=== PATIENT | male | born 1950 | race Caucasian/White ===

== ENCOUNTER 2021-11-12 11:46 | Inpatient (IN) | payer MEDICARE, BC ==
[~2021-11-12] VITALS: Ht 170.2 cm; Wt 76.2 kg
--- NOTE | 2021-11-12 11:52 | NUR ---
BIBRA 84 FROM HOME C/O BLOOD IN THE STOOL STARTED 1AM THIS MORNING. PT DENIES NAUSEA. VITALS ARE WITHIN NORMAL LIMTIS. BREATHING IS EVEN AND UNLABORED.
--- NOTE | 2021-11-12 12:13 | NUR ---
PT UNABLE TO PROVIDE URINE AT THIS ANSELMO E
[2021-11-12 12:48] LABS: BASOPHILS # (AUTO) 0.1 K/uL (0.0-0.2); BASOPHILS % (AUTO) 1.3 % (0.0-2.0); EOSINOPHILS % (AUTO) 3.2 % (0.0-6.0); HEMATOCRIT 34 % (39-51); HEMOGLOBIN 11.5 g/dL (13.5-17.5); LYMPHOCYTES # (AUTO) 1.4 K/uL (0.8-4.8); LYMPHOCYTES % (AUTO) 13.1 % (20.0-44.0); MEAN CORPUSCULAR HGB CONC 34 g/dl (31.0-36.0); MEAN CORPUSCULAR VOLUME 92 fL (80-96); NEUTROPHILS # (AUTO) 7.8 K/uL (1.8-8.9); NEUTROPHILS % (AUTO) 73.4 % (43.0-81.0); PLATELET COUNT (AUTO) 416 K/uL (150-450); RED BLOOD CELL COUNT(AUTO) 3.72 MIL/uL (4.5-6.0); WHITE BLOOD COUNT (AUTO) 10.6 K/uL (4.3-11.0)
[2021-11-12 13:00] LABS: CALCIUM, SERUM 9.8 mg/dL (8.5-10.1); CREATININE 1.1 mg/dL (0.6-1.3); POTASSIUM 3.7 mmol/L (3.5-5.1)
[2021-11-12 13:06] LABS: ALBUMIN 3.1 g/dL (3.4-5.0); BILIRUBIN,DIRECT 0.1 mg/dL (0.0-0.2); BILIRUBIN,TOTAL 0.4 mg/dL (0.2-1.0); TOTAL PROTEIN, SERUM 7.1 g/dL (6.4-8.2)
--- NOTE | 2021-11-12 13:51 | NUR ---
SUBMITTED MOVE SHEET AND CALLED FOR BED
--- NOTE | 2021-11-12 13:52 | NUR ---
PAGED EPIC JANITORIAL SUPERVISOR
[2021-11-12] MEDS ORDERED: MAG HYDROX/AL HYDROX/SIMETH 30 ML UDC PO PRN (14:30)
[2021-11-12] MEDS ORDERED: Z GUARD REMEDY 4 OZ OINT TP PRN (14:30)
[2021-11-12] MEDS ORDERED: ACETAMINOPHEN 325 MG TABLET PO PRN (14:30)
[2021-11-12] MEDS ORDERED: MAGNESIUM HYDROXIDE 30 ML UDC PO PRN (14:30)
[2021-11-12] MEDS ORDERED: ONDANSETRON HCL/PF 4 MG/2 ML VIAL IVP PRN (14:30)
[2021-11-12] MEDS ORDERED: DAPA10TA PO (14:37)
[2021-11-12] MEDS ORDERED: METF-440 PO (14:37)
[2021-11-12] MEDS ORDERED: PIOG30TA10 PO (14:37)
[2021-11-12] MEDS ORDERED: TOPI50TA PO (14:37)
[2021-11-12] MEDS ORDERED: ATOR40TA PO (14:37)
[2021-11-12] MEDS ORDERED: FENO160T PO (14:37)
--- NOTE | 2021-11-12 16:27 | NUR ---
covid test collected and sent
--- NOTE | 2021-11-12 16:28 | NUR ---
urine collected and sent
[2021-11-12] MEDS: ZOSYN IVPB 3.375 G in IV D5W 50ml IV SCH (18:29)
[2021-11-12] MEDS: IV NS 0.9% 1,000 ML IV PRN (19:15)
--- NOTE | 2021-11-12 19:54 | NUR ---
ROOM ASSIGNMENT: [id number]
--- NOTE | 2021-11-12 20:22 | NUR ---
GAVE REPORT TO RENETTA MAYER FOR SHRAVAN
[2021-11-12] MEDS: PANTOPRAZOLE 40 MG VIAL IV SCH (21:00)
[2021-11-12 21:30] VITALS: BP 146/89
[2021-11-13] VITALS: BP 136/73
[2021-11-13] MEDS: ZOSYN IVPB 3.375 G in IV D5W 50ml IV SCH ×3 (00:21→12:26)
[2021-11-13] MEDS ORDERED: PIPERACILLIN /TAZOBACTAM 3.375 G VIAL IV ONE (03:20)
[2021-11-13 04:00] VITALS: BP 126/89
--- NOTE | 2021-11-13 06:55 | NUR ---
MS RN CLOSING NOTE PATIENT IS ASLEEP IN BED. A/OX4. NO S/S OF DISTRESS, BREATHING SYMMETRICAL; TOOL COORDINATOR REPORTS SR 101. RFA #20G IV PATENT. SAFETY MEASURES IN PLACE: BED AT LOWEST POSITION, RAILS UP X2, CALL [facility] WITHIN REACH. WILL ENDORSE TO NEXT SHIFT FOR SHRAVAN.
[2021-11-13 07:21] LABS: BASOPHILS # (AUTO) 0.1 K/uL (0.0-0.2); BASOPHILS % (AUTO) 0.9 % (0.0-2.0); EOSINOPHILS % (AUTO) 3.7 % (0.0-6.0); HEMATOCRIT 29 % (39-51); HEMOGLOBIN 9.8 g/dL (13.5-17.5); LYMPHOCYTES # (AUTO) 1.1 K/uL (0.8-4.8); LYMPHOCYTES % (AUTO) 9.7 % (20.0-44.0); MEAN CORPUSCULAR HGB CONC 33 g/dl (31.0-36.0); MEAN CORPUSCULAR VOLUME 92 fL (80-96); MONOCYTES # (AUTO) 1.2 K/uL (0.1-1.30); MONOCYTES % (AUTO) 9.8 % (2.0-12.0); NEUTROPHILS % (AUTO) 75.9 % (43.0-81.0); PLATELET COUNT (AUTO) 459 K/uL (150-450); WHITE BLOOD COUNT (AUTO) 11.8 K/uL (4.3-11.0)
[2021-11-13 07:48] LABS: CALCIUM, SERUM 9.6 mg/dL (8.5-10.1); CREATININE 1.1 mg/dL (0.6-1.3); MAGNESIUM 1.8 mg/dL (1.8-2.4); PHOSPHORUS 2.9 mg/dL (2.5-4.9); POTASSIUM 4.3 mmol/L (3.5-5.1)
[2021-11-13 08:00] VITALS: BP 135/79
--- NOTE | 2021-11-13 09:00 | NUR ---
tele memorial designer: md visit seen and examined by dr. tran at this time and updated plan of care. pt for gi consult. pt aware.
[2021-11-13] MEDS: PANTOPRAZOLE 40 MG VIAL IV SCH (09:24)
--- NOTE | 2021-11-13 11:00 | NUR ---
tele lime kiln operator: notes pt had episode of blood in the stool. dr. tran made aware and says dr. knott (gi) is aware. awaiting for dr. knott to see pt.
[2021-11-13 12:00] VITALS: BP 154/79
[2021-11-13] MEDS: IV NS 0.9% 1,000 ML IV PRN (12:05)
--- NOTE | 2021-11-13 15:10 | NUR ---
tele dietary manager: notes pt tolerated his lunch. no c/o abdominal pain, n/v or blood in the stool. instructed to call for assistance. will continue to monitor.
[2021-11-13 16:00] VITALS: BP 129/77
--- NOTE | 2021-11-13 17:00 | NUR ---
tele horseradish grinder: notes dr. tran on the phone and wants to talk to the pt, call transfer to pt.
--- NOTE | 2021-11-13 17:30 | NUR ---
tele kiss setter hand: notes f/u made to dr. tran and informed md that pt wants to go [facility] and doesn't want to wait for the development technician. cn aware.
--- NOTE | 2021-11-13 17:45 | NUR ---
tele cable lacer: notes pt decided to go against medical advice and will follow up with his primary on monday or monday. dr. tran notified and made aware.
--- NOTE | 2021-11-13 17:55 | NUR ---
tele roll bucker: notes pt is leaving voluntarily leaving the hospital against the advice of dr. tran. pt understands the risks and consequences involving in leaving the hospital at this time, the benefits of continued treatment and hospitalization. pt still insisted going [facility] and signed the the form. h/l and tele removed. at bedside.
--- NOTE | 2021-11-13 18:05 | NUR ---
tele rn perioperative: notes pt left the hospital via private car accompanied by with all valuables.
--- NOTE | 2021-11-15 12:08 | NUR ---
Social Work received consult for DNR/DNI Status. Pt. was departed and SW was unable to see pt.
== END 2021-11-13 18:00 | disposition left against medical advice (07) | DRG 377 ==
LOC: ER 11:51 → MED 20:05 → TELE 21:03
PROVIDERS: ADMIT Internal Medicine; ATTEND Internal Medicine
DX: K92.2 Gastrointestinal hemorrhage, unspecified (principal); N17.0 Acute kidney failure with tubular necrosis; E43 Unspecified severe protein-calorie malnutrition; M48.56XA Collapsed vertebra, not elsewhere classified, lumbar region, initial encounter for fracture; Z20.822 Contact with and (suspected) exposure to COVID-19; E11.9 Type 2 diabetes mellitus without complications; I10 Essential (primary) hypertension; D64.9 Anemia, unspecified; I70.8 Atherosclerosis of other arteries; K40.20 Bilateral inguinal hernia, without obstruction or gangrene, not specified as recurrent; N20.0 Calculus of kidney; K59.00 Constipation, unspecified
CPT/HCPCS: 36415; 80048-TC; 80076-TC; 83690-TC; 83735-TC; 84100-TC; 85025-TC; 87081-TC; C9113; C9803; G0378; J2543; J7030; J7060